=== PATIENT | female | born 1985 | race Caucasian/White ===

== ENCOUNTER 2019-12-08 08:49 | Emergency (ER) | payer OTHER ==
[2019-12-08 09:16] VITALS: BP 124/89
[2019-12-08 09:42] LABS: Influenza A Molecular Negative (Negative); Influenza B Molecular Negative (Negative)
--- NOTE | 2019-12-08 11:13 | UC ---
Respiratory Complaint HPI - HPI Summary HPI Summary: PATIENT HAS INSTRUCTED WITH RESPIRATORY SYMPTOMS FOR A COUPLE OF WEEKS. FEELS LIKE SHE IS GETTING WORSE. WENT TO AN OUTSIDE FACILITY WAS PLACED ON DOXYCYCLINE FOR SINUS INFECTION. WAS ALSO GIVEN AN ALBUTEROL INHALER. STATES SHE DOESN'T FEEL SHE IS GETTING MUCH BETTER. SHE IS FEELING FATIGUED AND SHORT OF BREATH. COMPLAINING OF SOME PLEURITIC PAIN. NO FEVER. SON HAS INFLUENZA A. - History of Current Complaint Chief Complaint: UCGeneralIllness Stated Complaint: SINUS CONGESTION Time Seen by Provider: 12/08/19 09:20 Hx Obtained From: Patient Hx Last Menstrual Period: 10/01/19 Onset/Duration: Gradual Onset, Lasting Weeks, Still Present Timing: Constant Severity Initially: Moderate Severity Currently: Moderate Pain Intensity: 0 Pain Scale Used: 0-10 Numeric Character: Cough: Nonproductive Aggravating Factors: Nothing Alleviating Factors: Nothing Associated Signs And Symptoms: Positive: URI, Nasal Congestion. Negative: Wheezing - Allergies/Home Medications Allergies/Adverse Reactions: Allergies Allergy/AdvReac Type Severity Reaction Status Date / Time MS Penicillins [PCN] Allergy Joint Pain Verified 12/08/19 09:15 Home Medications: Home Medications DOXYcycline CAP(*) [DOXYcycline 100MG CAP(*)] 1 cap PO BID 12/08/19 [History Confirmed 12/08/19] PMH/Surg Hx/FS Hx/Imm Hx Previously Healthy: Yes - Surgical History Surgical History: Yes Surgery Procedure, Year, and Place: tonsilectomy - Family History Known Family History: Positive: Non-Contributory - Social History Alcohol Use: Occasionally Substance Use Type: None Smoking Status (MU): Never Smoked Tobacco - Immunization History Most Recent Influenza Vaccination: 07/2013 Most Recent Tetanus Shot: unknown Most Recent Pneumonia Vaccination: none Review of Systems All Other Systems Reviewed And Are Negative: Yes Constitutional: Positive: Fatigue ENT: Positive: Nasal Discharge Respiratory: Positive: Shortness Of Breath, Cough Cardiovascular: Positive: Negative Gastrointestinal: Positive: Negative Physical Exam Triage Information Reviewed: Yes Appearance: Well-Appearing, Well-Nourished Vital Signs: Initial Vital Signs Temp 99.8 F 12/08/19 09:09 Pulse 85 12/08/19 09:09 Resp 18 12/08/19 09:09 BP 124/89 12/08/19 09:09 Pulse Ox 97 12/08/19 09:09 Laboratory Tests 12/08/19 09:30 Influenza A (Rapid) Negative Influenza B (Rapid) Negative Vital Signs Reviewed: Yes Eyes: Positive: Conjunctiva Clear ENT: Positive: Hearing grossly normal, Pharynx normal, TMs normal Neck: Positive: Supple, Nontender, No Lymphadenopathy Respiratory Exam: Normal Cardiovascular Exam: Normal Abdomen Description: Positive: Soft Musculoskeletal: Positive: No Edema Neurological: Positive: Alert Psychological: Positive: Age Appropriate Behavior Skin: Negative: Rashes Diagnostics - Radiology CXR Radiology Interpretation Completed By: Radiologist Summary of Radiographic Findings: No active cardiopulmonary disease is noted. Respiratory Course/Dx - Course Course Of Treatment: FLU NEGATIVE. CHEST X-RAY UNREMARKABLE. VITAL SIGNS ALL STABLE. PATIENT LOOKS WELL ON EXAM. ADVISED TO CONTINUE HER DOXYCYCLINE AND USE HER ALBUTEROL NEEDED. WILL GIVE A SHORT BURST OF PREDNISONE TO SEE IF THIS HELPS WITH HER SYMPTOMS. FOLLOW-UP IF NOT IMPROVING. - Differential Dx/Diagnosis Provider Diagnosis: Cough Discharge ED - Sign-Out/Discharge Documenting (check all that apply): Patient Departure All imaging exams completed and their final reports reviewed: Yes - Discharge Plan Condition: Stable Disposition: HOME Prescriptions: predniSONE 20 mg TAB [Deltasone 20 MG TAB*] 40 mg PO DAILY #10 tab Patient Education Materials: Acute Cough (ED) Referrals: Angélica Canales, [facility] [Primary Care Provider] - If Needed Additional Instructions: FLU SWAB NEGATIVE. CHEST X-RAY UNREMARKABLE. CONTINUE DOXYCYCLINE PRESCRIBED AND USE YOUR ALBUTEROL NEEDED. WILL TRY A SHORT BURST OF PREDNISONE TO SEE IF THIS HELPS WITH AIRWAY INFLAMMATION. REST, HYDRATE, OTC MEDS NEEDED. - Billing Disposition and Condition Condition: STABLE Disposition: Home
== END 2019-12-08 11:36 | disposition home or self-care (01) ==
LOC: UCEAST 08:49
DX: R05 Cough (principal); R09.81 Nasal congestion; R06.02 Shortness of breath; J32.9 Chronic sinusitis, unspecified; R53.83 Other fatigue; R07.81 Pleurodynia; Z88.0 Allergy status to penicillin
CPT/HCPCS: 71046; 99212; G0463